=== PATIENT | female | born 1970 | race Hispanic/Latino ===

== ENCOUNTER 2018-09-24 14:13 | Inpatient (IN) | payer SELFPAY ==
[~2018-09-24 14:13] MED LIST: ISOVUE-370 76%-LOCM 1 ML ONE
[2018-09-24 15:11] LABS: #Basophils 0.1 thou/uL (0.0-0.2); #Eosinphils 0.1 thou/uL (0.0-0.7); #Lymphocytes 1.8 thou/uL (1.20-3.40); #Monocytes 0.6 thou/uL (0.11-0.59); #Neutrophils 4.9 thou/uL (1.40-6.50); %Basophils 1.8 % (0.0-1.0); %Eosinophils 1.9 % (0.0-10.0); %Lymphocytes 24.1 % (21.0-51.0); %Monocytes 7.3 % (0.0-10.0); %Neutrophils 64.9 % (42.0-75.0); Hemoglobin 13.1 g/dL (12.0-16.0); Mean Corpuscular HGB CONC 30.5 g/dL (32.0-36.0); Mean Corpuscular Hemoglobin 26.2 pg (27.0-31.0); Mean Corpuscular Volume 85.9 fL (78.0-98.0); Mean Platelet Volume 8.9 fL (7.4-10.4); Platelet Count 227 thou/uL (130-400); RBC Distribution Width 15.1 % (11.5-14.5); Red Blood Cell (RBC) Count 5.01 mill/uL (4.20-5.40); White Blood Cell (WBC) Count 7.5 thou/uL (4.8-10.8)
--- NOTE | 2018-09-24 15:20 | RAD ---
EXAM: Chest one view: HISTORY: Chest pain, fluid retention COMPARISON: 04/18/2011 FINDINGS: Heart size: Enlarged. Lungs: Bilateral vascular congestion with minimal linear and alveolar patchy perihilar opacity change s. No overt confluent pneumonia. IMPRESSION: Cardiomegaly with vascular congestion and possible mild or early edema without confluent pneumonia.
[2018-09-24 15:27] LABS: ALT (SGPT) 13 U/L (8-55); AST (SGOT) 15 U/L (5-34); Albumin 3.3 g/dL (3.5-5.0); Alkaline Phosphatase 88 U/L (40-150); Anion Gap 13 mmol/L (10-20); BUN (Urea Nitrogen) 5 mg/dL (7.0-18.7); Bilirubin, Total 1.4 mg/dL (0.2-1.2); Calc. Creatinine Clearance 0 mL/min (70-130); Calcium 8.5 mg/dL (7.8-10.44); Carbon Dioxide 29 mmol/L (22-29); Chloride 99 mmol/L (98-107); Estimated GFR-MDRD 84; Globulin 4.8 g/dL (2.4-3.5); Glucose 100 mg/dL (70-105); Potassium 3.5 mmol/L (3.5-5.1); Protein, Total 8.1 g/dL (6.0-8.3); Sodium 137 mmol/L (136-145)
[2018-09-24] MEDS ORDERED: Nitroglycerin 0.4 MG TAB 1 EACH ONE (16:04)
[2018-09-24] MEDS ORDERED: Nitroglycerin 0.4mg/Hour PATCH ONE (16:05)
--- NOTE | 2018-09-24 16:41 | CT ---
CTA CHEST WITH CONTRAST: 09/24/18 Multiple axial tomograms obtained through the chest following angio protocol with multiplanar reconst ruction and 3D post processing. INDICATIONS: Lower extremity pain and edema. History of cardiomyopathy. Chest pain and shortness of breath. FINDINGS: There is cardiomegaly and vascular congestion. The pulmonary arteries show adequate enhancement; olivia amelia, evaluation is degraded due to soft tissue attenuation from body habitus. No evidence of pulmonary embolus identified to the segmental level. Mediastinal and hilar adenopathy is seen. Diffuse ground glass opacities are seen throughout both lung macias. This may represent edema or infl ammatory infiltrate. Images through the upper abdomen unremarkable. Thoracic aorta is opacified and there is no evidence of thoracic dissection or aneurysm. IMPRESSION: 1. No evidence of pulmonary embolus. 2. Cardiomegaly with vascular congestion. Patchy areas of ground glass opacity throughout both l ungs could represent areas of edema or infiltrate. No effusion. 3. Mediastinal and hilar adenopathy. POS: OFF
[2018-09-24 17:43] LABS: Bilirubin Negative (Negative); Blood, Urine Negative (Negative); Clarity Clear (Clear); Glucose, Urine (Dipstick) Normal (Negative); Leukocyte Negative Leu/uL (Negative); Nitrite Negative (Negative); Protein, Urine (Dipstick) Negative (Neg-Trace); Urobilinogen Normal mg/dL (Less than 2)
[2018-09-24] MEDS ORDERED: Furosemide 40 MG/4 ML VIAL ONE (20:47)
[2018-09-24] MEDS ORDERED: Acetaminophen 325 MG TAB PO PRN (21:39)
[2018-09-24] MEDS ORDERED: Ondansetron ODT 4 MG TAB PO PRN (21:39)
[2018-09-24] MEDS ORDERED: Ondansetron PF 4 MG/2 ML Vial IVP PRN (21:39)
[2018-09-24] MEDS ORDERED: Acetaminophen 650 MG Suppository PR PRN (21:39)
[2018-09-24 22:00] VITALS: BMI 57.7
[2018-09-24] MEDS ORDERED: cloNIDine 0.1 MG TAB PO PRN (22:34)
[2018-09-24] MEDS ORDERED: Lisinopril 10 MG TAB PO SCH (22:45)
--- NOTE | 2018-09-24 23:56 | HP ---
PRIMARY CARE PHYSICIAN: The patient has no PCP. CODE STATUS: Full code. TIME OF EVALUATION: 8:10 p.m. CHIEF COMPLAINT: Bilateral leg swelling and shortness of breath. HISTORY OF PRESENT ILLNESS: This is a 47-year-old female patient with past medical history of cardiomyopathy, came to the hospital after having severe gradually worsening shortness of breath. No clear triggers, no alleviating factors. The patient does not follow up with any doctor. Does not take any medications. The patient is obese, she presented with severe shortness of breath and bilateral leg swelling, symptoms were severe. REVIEW OF SYSTEMS: CONSTITUTIONAL: No fever or chills. The patient has generalized weakness. RESPIRATORY: The patient has cough, sputum production, and shortness of breath. CARDIOVASCULAR: No chest pain or palpitation. GASTROINTESTINAL: No nausea. No vomiting, diarrhea, or abdominal pain. 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 GENITOURINARY: No burning on urination. EXTREMITIES: Bilateral leg swelling. All other systems were reviewed and negative except for the findings mentioned above. PAST MEDICAL HISTORY: Positive for hypertension, morbid obesity, diabetes, preeclampsia, and varicose veins. PAST SURGICAL HISTORY: Appendectomy and . PSYCHIATRIC HISTORY: No reported previous psych history. SOCIAL HISTORY: The patient uses tobacco, smokes cigarettes daily. The patient has smoked for 30 years. The patient smokes one pack per day. KNOWN ALLERGIES: No known drug allergies. REPORTED MEDICATIONS: 1. Benadryl. 2. Tylenol. PHYSICAL EXAMINATION: VITAL SIGNS: On presentation; heart rate 105, respiratory rate was 20, temperature 98.2, pain 6/10, oxygen saturation was 87% on room air, and blood pressure 216/112. GENERAL APPEARANCE: The patient is alert, oriented, not in acute distress. HEENT: Eyes, normal conjunctivae. Moist oral mucosa. Anicteric. No JVD. RESPIRATORY: Bilateral air entry. No rales. No wheezes. Symmetric expansion. CARDIOVASCULAR: Normal rate. Regular rhythm. No murmurs. No gallop. Bilateral leg edema. The patient has significant high blood pressure. ABDOMEN: Soft. Normal bowel sounds. MUSCULOSKELETAL: Baseline range of motion and strength. SKIN: Warm, intact. No pallor. No rash. No redness except for chronic skin changes due to psoriasis in the back and also bilateral lower extremities. Capillary refill seems to be intact. NEURO: No evidence of any new focal weakness. Cranial nerves seem to be intact. PSYCH: The patient has good mood. No anxiety. Optimal judgment. DIAGNOSTIC STUDIES: CARDIOVASCULAR STUDIES: EKG was reviewed. The patient has normal sinus rhythm with a rate of 78, prolonged QT of 503. IMAGING STUDIES: Chest CTA was done. No evidence of pulmonary embolism. Cardiomegaly with vascular congestion. Patchy area of ground-glass opacity throughout both lungs, could represent areas of edema or infiltrate. No effusion. Mediastinal and hilar adenopathy. LABORATORY RESULTS: Labs were reviewed. The patient has white count 7.5, hemoglobin 13.1, MCV 85.9, and platelet count 227. Chemistry; sodium 137, potassium 3.5, chloride 99, carbon dioxide 29, anion gap 13, BUN 5, creatinine 0.74, GFR 84, glucose 100, and calcium 9.5. Total bilirubin 1.4, AST 15, ALT 13, and alkaline phosphatase 88. Troponin was negative. Beta natriuretic peptide 143.5. Serum total protein 8.1, albumin 3.3, globulin 4.8, albumin to globulin ratio 0.7. UA was done, was negative. ASSESSMENT AND PLAN: The patient will be placed in the hospital with following medical problems; 1. Congestive heart failure exacerbation. The patient does not follow with any medications, noncompliant with treatment. The patient has been started on Lasix, restart blood pressure medications. Once stable, can be started on beta blockers. 2. Hypertensive urgency. The patient presented with systolic blood pressure in the 200s. We have restarted some p.o. medications and the patient has been also started on Lasix and nitroglycerin paste. We will monitor and adjust treatment as needed. 3. History of psoriasis. The patient on no medications. The patient has extensive chronic plaques, but it seem to be stable at this point. 4. Morbid obesity. She is advised to lose weight. 5. Deep venous thrombosis prophylaxis. Job ID: [id number]
[2018-09-25 05:16] LABS: Anion Gap 13 mmol/L (10-20); BUN (Urea Nitrogen) 6 mg/dL (7.0-18.7); Calc. Creatinine Clearance 226 mL/min (70-130); Calcium 8.6 mg/dL (7.8-10.44); Carbon Dioxide 30 mmol/L (22-29); Chloride 98 mmol/L (98-107); Estimated GFR-MDRD 88; Glucose 104 mg/dL (70-105); Potassium 3.5 mmol/L (3.5-5.1); Sodium 137 mmol/L (136-145)
[2018-09-25 05:22] LABS: #Eosinphils 0.2 thou/uL (0.0-0.7); #Lymphocytes 1.5 thou/uL (1.20-3.40); #Monocytes 0.6 thou/uL (0.11-0.59); #Neutrophils 4.6 thou/uL (1.40-6.50); %Basophils 0.5 % (0.0-1.0); %Eosinophils 3.3 % (0.0-10.0); %Lymphocytes 21.9 % (21.0-51.0); %Monocytes 8.5 % (0.0-10.0); %Neutrophils 65.8 % (42.0-75.0); Hemoglobin 13.5 g/dL (12.0-16.0); Mean Corpuscular HGB CONC 30.2 g/dL (32.0-36.0); Mean Corpuscular Hemoglobin 26.2 pg (27.0-31.0); Mean Corpuscular Volume 86.7 fL (78.0-98.0); Mean Platelet Volume 8.7 fL (7.4-10.4); Platelet Count 217 thou/uL (130-400); RBC Distribution Width 15.1 % (11.5-14.5); Red Blood Cell (RBC) Count 5.16 mill/uL (4.20-5.40)
[2018-09-25] MEDS: Nitroglycerin 2% Ointment 1 INCH/1 GM Packet TOP SCH ×3 (05:43→21:35)
[2018-09-25] MEDS: Furosemide 40 MG/4 ML VIAL SLOW IVP SCH ×2 (05:43→13:59)
[2018-09-25] MEDS: Lisinopril 10 MG TAB PO SCH (09:34)
[2018-09-25] MEDS: Hydrochlorothiazide 25 MG TAB PO SCH (09:34)
[2018-09-25] MEDS: Enoxaparin Sodium 40 MG/0.4 ML SYRINGE SC SCH (09:35)
--- NOTE | 2018-09-25 11:14 | PRG ---
DATE OF SERVICE: 09/25/2018 SUBJECTIVE: The patient is seen and examined at the bedside. She has some numbness in her both lower extremities. She has some shortness of breath, which has somewhat improved since yesterday. She denies any fever or chills. OBJECTIVE: VITAL SIGNS: Blood pressure is 183/85, pulse is 73, temperature is 97.7, respiratory rate is 16, O2 saturation is 99% on 1.5 L by nasal cannula. She is obese. Her BMI is 57. HEENT: Her head is atraumatic and normocephalic. Sclerae are nonicteric. Oral mucosa is moist. NECK: Supple, obese. LUNGS: Breath sounds diminished at both bases. HEART: S1 and S2, distant. No S3. No S4. ABDOMEN: Obese, soft, nontender, nondistended. EXTREMITIES: 2 to 3+ peripheral edema, chronic with venous stasis skin changes, which is chronic. Pulses are not palpable secondary to the above-mentioned findings. NEUROLOGICAL: She follows my commands. She moves her all 4 extremities. There is some decreased sensation over her feet bilaterally similar. LABORATORY DATA: Labs showed a white count of 7.0, hemoglobin 13.5, hematocrit 44.7, platelet count 217. Sodium 137, potassium 3.5, chloride 98, CO2 of 30, BUN is 6, creatinine 0.71, glucose 104, calcium 8.6. Urinalysis is within normal limits. Her BNP was 143.5 yesterday. IMPRESSION: 1. cardiomyopathy. Apparently after she had baby in 2011, she was diagnosed with cardiomyopathy. She was taking some medications, but she ran out of them and she did not have more insurance and she has not been on any medications for several years. She is started on Lasix. She is started on KAYCE inhibitor at this point and most likely, we will start her on carvedilol small dose. 2. Hypertensive urgency. Again, the blood pressure was in the 200s at the time of emergency room evaluation, now it is 180s and she was just giving her morning dose medications. We are awaiting for echocardiogram to be done to evaluate #1 and #2 problems. 3. History of psoriasis. 4. Venous stasis of both lower extremities. 5. Morbid obesity with BMI at 57. 6. Metabolic alkalosis most likely secondary to IV Lasix. PLAN: Plan is to continue current regimen, which includes IV Lasix and lisinopril. I am going to start her on small dose of carvedilol too since I do not think those two is going to be enough to get her blood pressure to a reasonable range. We are awaiting for echocardiogram to come back. I will start her on baby aspirin 81 mg once a day, and construction area manager is consulted since the patient does not have much funds and she will need referral most likely to [facility] to see the doctor and get some help with the medicine. DVT prophylaxis with Lovenox is going to be continued. Job ID: [id number]
[2018-09-25] MEDS: Carvedilol 3.125 MG TAB PO SCH (16:23)
[2018-09-26] MEDS: Furosemide 40 MG/4 ML VIAL SLOW IVP SCH ×2 (06:06→14:06)
[2018-09-26] MEDS: Nitroglycerin 2% Ointment 1 INCH/1 GM Packet TOP SCH ×3 (06:06→20:13)
[2018-09-26] MEDS: Hydrochlorothiazide 25 MG TAB PO SCH (08:42)
[2018-09-26] MEDS: Lisinopril 10 MG TAB PO SCH (08:43)
[2018-09-26] MEDS: Carvedilol 3.125 MG TAB PO SCH ×2 (08:43→17:19)
[2018-09-26] MEDS: Aspirin 81 mg Enteric Coated Tablet PO SCH (08:43)
[2018-09-26] MEDS: Enoxaparin Sodium 40 MG/0.4 ML SYRINGE SC SCH (08:43)
[2018-09-26 12:11] LABS: BUN (Urea Nitrogen) 10 mg/dL (7.0-18.7); Calc. Creatinine Clearance 208 mL/min (70-130); Calcium 8.6 mg/dL (7.8-10.44); Estimated GFR-MDRD 82; Glucose 95 mg/dL (70-105)
[2018-09-26 12:20] LABS: Anion Gap 16 mmol/L (10-20); Carbon Dioxide 33 mmol/L (22-29); Chloride 93 mmol/L (98-107); Sodium 138 mmol/L (136-145)
--- NOTE | 2018-09-26 14:17 | PRG ---
DATE OF SERVICE: 09/26/2018 SUBJECTIVE: The patient is seen and examined at the bedside. She is doing somewhat better. She does not have much complaints to offer. She started urinating a lot. OBJECTIVE: VITAL SIGNS: Blood pressure is 151/88, pulse is 75, O2 saturation is 96% on half a liter of nasal cannula, temperature is 97.7. Obese, her BMI is 56. HEENT: Her head is atraumatic. Eyes, conjunctivae pinkish. Oral mucosa is moist. NECK: Supple. Obese. LUNGS: Breath sounds diminished at both bases with bilateral crackles at both bases. HEART: S1, S2, somewhat distant. No S3. No S4. ABDOMEN: Obese, soft, nontender. EXTREMITIES: Significant for lymphedema and venous stasis. NEUROLOGIC: She follows my commands. She moves all 4 extremities. There is no any sensory or motor deficit present. Cranial nerves are intact. LABORATORY DATA: Labs showed a sodium of 138, potassium 4.0, chloride 93, CO2 of 33, BUN 10, creatinine 0.75. Echocardiogram was done, but it was poor quality and the general warehouse worker was not able to read it. IMPRESSION: 1. Cardiomyopathy, which started several years ago and the patient stopped taking her medications. I started her on Lasix and KAYCE inhibitor and Coreg. She requires high dose of Coreg today since her blood pressure is still running high. 2. Hypertensive urgency. As I said above, she is getting lisinopril and Coreg, but her blood pressure is still not controlled, so we will double the dose on her Coreg and continue lisinopril and continue diuresis. 3. History of psoriasis. 4. Venous stasis of both lower extremities and lymphedema. 5. Morbid obesity with BMI critical at 57. 6. Metabolic alkalosis, most likely secondary to IV Lasix use. PLAN: Plan is to continue her current regimen with change of her carvedilol dose since her blood pressure is still running elevated, although it is improved. We will continue her aspirin. We will continue her other regimen and we will repeat echocardiogram today to learn what is her LVEF. Job ID: [id number]
[2018-09-27 05:25] LABS: Anion Gap 12 mmol/L (10-20); BUN (Urea Nitrogen) 14 mg/dL (7.0-18.7); Calc. Creatinine Clearance 211 mL/min (70-130); Calcium 8.5 mg/dL (7.8-10.44); Carbon Dioxide 35 mmol/L (22-29); Chloride 94 mmol/L (98-107); Estimated GFR-MDRD 85; Glucose 95 mg/dL (70-105); Potassium 3.5 mmol/L (3.5-5.1); Sodium 137 mmol/L (136-145)
[2018-09-27] MEDS: Furosemide 40 MG/4 ML VIAL SLOW IVP SCH ×2 (05:58→12:59)
[2018-09-27] MEDS: Nitroglycerin 2% Ointment 1 INCH/1 GM Packet TOP SCH ×3 (06:40→20:37)
[2018-09-27] MEDS: Lisinopril 10 MG TAB PO SCH ×2 (07:46→20:35)
[2018-09-27] MEDS: Carvedilol 3.125 MG TAB PO SCH ×2 (07:46→16:36)
[2018-09-27] MEDS: Hydrochlorothiazide 25 MG TAB PO SCH (07:46)
[2018-09-27] MEDS: Enoxaparin Sodium 40 MG/0.4 ML SYRINGE SC SCH (07:47)
[2018-09-27] MEDS: Aspirin 81 mg Enteric Coated Tablet PO SCH (07:47)
--- NOTE | 2018-09-27 12:03 | PRG ---
DATE OF SERVICE: 09/27/2018 SUBJECTIVE: The patient is seen and examined at bedside. She is doing significantly better. She diuresed very well. Her swelling on her lower extremities improved according to her. OBJECTIVE: VITAL SIGNS: Blood pressure is 166/90, pulse is 68, respirations 16, temperature 97.7, O2 saturation is 97% on room air. HEENT: Head is atraumatic and normocephalic. Sclerae are nonicteric. Oral mucosa is moist. NECK: Supple, obese. LUNGS: Breath sounds diminished at both bases. No crackles. HEART: S1 and S2 distant. No S3 and no S4. ABDOMEN: Obese, nontender. EXTREMITIES: She has quite intense lymphedema, which is somewhat improved from the time of admission. She has psoriatic skin changes in her back and her lower extremities. NEUROLOGIC: She is alert and oriented x4. There is no any motor deficits. LABORATORY DATA: Labs showed sodium of 137, potassium 3.5, chloride 94, CO2 of 35, BUN 14, creatinine 0.73, calcium 8.5. IMPRESSION: 1. Acute on chronic congestive heart failure. Echocardiogram was very difficult to read, so we are getting a new one. We will get clinical application specialist involved. She is started on Lasix, ledvvxbnups-iutdwdztvt-ylwpaq inhibitor, and Coreg. 2. Hypertensive urgency. Blood pressure is improved, but it is still a problem. We will work on that. 3. History of psoriasis. 4. Venous stasis and lymphedema of the lower extremities. 5. Morbid obesity. Body mass index critical at 57. PLAN: Continue current regimen. Obtain new echo and Cardiology consultation is requested, and her urine output was more than 5000 mL, so we will correct the hydrochlorothiazide and we will continue aspirin. Job ID: [id number]
--- NOTE | 2018-09-27 23:52 | CON ---
DATE OF CONSULTATION: HISTORY OF PRESENT ILLNESS: Abby Birch is a 47-year-old female, who was seen by Dr. Gonzalez in 2011. In March 2011, she gave and developed a peripartum cardiomyopathy. Ejection fraction at that time was 30-35%. She was placed on carvedilol and furosemide. She apparently then became again 7 months or 8 months later. She stated that she was evaluated at [facility] in [place]. From her description, it sounds as if she underwent cardiac catheterization to assess her left ventricular function. She describes having a catheter placed through her legs up to her heart and dye was injected into her heart. It was determined that she probably could undergo the . She states she eventually delivered by . She took heart failure medication for another 6 months after that , but once her Medicaid ran out, she stopped medication and has not taken anything since that time, which was 6 years ago. She states that she always has leg edema and at times it will weep fluid. She has had increased shortness of breath over the last 2-3 weeks. She denies any episodes of PND. She denies any chest discomfort. She ultimately came to the emergency room for further evaluation. PAST MEDICAL HISTORY: Hypertension, on no treatment, morbid obesity, venous insufficiency, and peripartum cardiomyopathy. PAST SURGICAL HISTORY: Appendectomy and . MEDICATIONS: None. ALLERGIES: NONE. SOCIAL HISTORY: She smokes one half pack per day. FAMILY HISTORY: Negative for coronary artery disease. REVIEW OF SYSTEMS: A 12-point review of systems unremarkable except as noted above. PHYSICAL EXAMINATION: VITAL SIGNS: Blood pressure 140/85 and pulse of 74. HEENT: SUMMER. NECK: Supple. CHEST: Reveals distant breath sounds. CARDIOVASCULAR: S1, S2 normal without any S3, S4, or murmurs. ABDOMEN: Obese. Normal bowel sounds. No tenderness. EXTREMITIES: Revealed severe stasis dermatitis with 1 to 2+ edema to the knee. NEUROLOGIC: Grossly intact. SKIN: Warm and dry. LABORATORY DATA: EKG reveals normal sinus rhythm, possible left atrial enlargement, left ventricular hypertrophy. Chest x-ray revealed cardiomegaly with vascular congestion. Chest CTA revealed no evidence of pulmonary embolism. There is cardiomegaly with vascular congestion and mediastinal and hilar adenopathy. Hemoglobin 13.5, hematocrit 44.7, white count 7000, platelets 217,000. Sodium 137, potassium 3.5, chloride 94, carbon dioxide 35, BUN 14, creatinine 0.73. BNP is only 143.5. Troponin I is less than 0.010. Echocardiogram was a technically inadequate exam and ejection fraction could not be accurately assessed. IMPRESSION: 1. Probable systolic heart failure, although her BNP is not significantly elevated. 2. History of peripartum cardiomyopathy with ejection fraction of 30% to 35% in March 2011, which then improved to 45-50% in November 2011. 3. Noncompliance with medications for the last 6 years. 4. Severe stasis dermatitis. 5. Morbid obesity. 6. Smoker. PLAN: The patient will be continued on carvedilol and will continue to be diuresed. I will increase her lisinopril to 10 mg b.i.d. Job ID: [id number] MTDD
[2018-09-28 04:57] LABS: Anion Gap 14 mmol/L (10-20); BUN (Urea Nitrogen) 17 mg/dL (7.0-18.7); Calc. Creatinine Clearance 201 mL/min (70-130); Calcium 8.9 mg/dL (7.8-10.44); Carbon Dioxide 33 mmol/L (22-29); Chloride 93 mmol/L (98-107); Estimated GFR-MDRD 80; Glucose 96 mg/dL (70-105); Potassium 3.5 mmol/L (3.5-5.1); Sodium 136 mmol/L (136-145)
[2018-09-28] MEDS: Furosemide 40 MG/4 ML VIAL SLOW IVP SCH (06:18)
[2018-09-28] MEDS: Nitroglycerin 2% Ointment 1 INCH/1 GM Packet TOP SCH ×3 (06:18→20:35)
[2018-09-28] MEDS: Carvedilol 3.125 MG TAB PO SCH ×2 (08:48→17:53)
[2018-09-28] MEDS: Lisinopril 10 MG TAB PO SCH ×2 (08:49→20:35)
[2018-09-28] MEDS: Enoxaparin Sodium 40 MG/0.4 ML SYRINGE SC SCH (08:49)
[2018-09-28] MEDS: Aspirin 81 mg Enteric Coated Tablet PO SCH (08:49)
[2018-09-28] MEDS ORDERED: Furosemide 20 MG TAB PO SCH (09:00)
[2018-09-28] MEDS: Furosemide 40 MG TAB PO SCH ×2 (09:42→15:45)
--- NOTE | 2018-09-28 15:21 | PRG ---
DATE OF SERVICE: 09/28/2018 SUBJECTIVE: The patient is seen and examined at the bedside. She is doing gradually better. She is still urinating a lot. She was seen by natural resources technician yesterday. OBJECTIVE: VITAL SIGNS: Blood pressure is 132/79, pulse is 70, temperature is 98.4, respirations 17, and O2 saturation is 92% to 97% on room air. HEENT: Her head is atraumatic and normocephalic. Her eyes are PERRLA. Sclerae are nonicteric. Oral mucosa is moist. NECK: Supple, obese. Breath sounds are diminished at both bases with few crackles bilaterally. HEART: S1 and S2 normal. No S3. No S4. ABDOMEN: Soft, obese, nontender, and nondistended. EXTREMITIES: Lymphedema with psoriatic skin changes present, but the swelling is significantly improved. NEUROLOGICAL: She is alert and oriented x4. There is no any motor or sensory deficits. LABORATORY DATA: Labs showed sodium of 136, potassium 3.5, chloride 93, CO2 of 33, BUN 17, creatinine 0.77, and normal calcium. Echocardiogram was repeated. It was still very difficult examination, but it was estimated that her estimated LVEF is 30% to 35% and there was moderate pulmonic regurgitation present. IMPRESSION: 1. Acute on chronic congestive heart failure, which started few years back. She has improved with diuretics and KAYCE inhibitor and Coreg. Lisinopril was increased by Dr. Blackwell. 2. Hypertensive urgency, improved. 3. Psoriasis. 4. Venous stasis and lymphedema of the lower extremities. 5. Morbid obesity with body mass index of 59, which is critical. PLAN: The patient was counseled about her obesity extensively. We are going to continue her current regimen. She has more than 3000 mL out for the last 24 hours on her urine output. We will see what Dr. Blackwell recommends, but at this point, we will continue the same regimen. Job ID: [id number]
[2018-09-29 05:07] LABS: Anion Gap 12 mmol/L (10-20); BUN (Urea Nitrogen) 24 mg/dL (7.0-18.7); Calc. Creatinine Clearance 156 mL/min (70-130); Calcium 8.8 mg/dL (7.8-10.44); Carbon Dioxide 34 mmol/L (22-29); Chloride 94 mmol/L (98-107); Estimated GFR-MDRD 60; Glucose 87 mg/dL (70-105); Potassium 3.9 mmol/L (3.5-5.1); Sodium 136 mmol/L (136-145)
[2018-09-29] MEDS: Carvedilol 3.125 MG TAB PO SCH (09:07)
[2018-09-29] MEDS: Aspirin 81 mg Enteric Coated Tablet PO SCH (09:07)
[2018-09-29] MEDS: Nitroglycerin 2% Ointment 1 INCH/1 GM Packet TOP SCH ×2 (09:08→15:07)
[2018-09-29] MEDS: Lisinopril 10 MG TAB PO SCH (09:08)
[2018-09-29] MEDS: Enoxaparin Sodium 40 MG/0.4 ML SYRINGE SC SCH (09:09)
[2018-09-29] MEDS: Furosemide 40 MG TAB PO SCH ×2 (09:09→15:06)
[2018-09-29 13:32] VITALS: BP 116/56; TEMP 98.5
--- NOTE | 2018-09-29 23:13 | DIS ---
DATE OF ADMISSION: 09/27/2018 DATE OF DISCHARGE: 09/29/2018 FINAL DIAGNOSES: 1. Acute on chronic congestive heart failure. 2. cardiomyopathy. 3. Hypertensive urgency, corrected. 4. Psoriasis. 5. Venous stasis and lymphedema to both lower extremities. 6. Morbid obesity with body mass index of 59, which is critical. CONSULTANTS: Dr. Shamar Blackwell, Cardiology Service. HOSPITAL COURSE: The patient was a 47-year-old female with past medical history of cardiomyopathy several years ago who was following with the doctor for some time after that diagnosis, but at some point, she stopped following and stopped taking her medications altogether until recently when she started having some shortness of breath and bilateral leg swelling. She presented to the emergency room and was found to have white count of 7.5, hemoglobin 13.1, MCV 85.9. Electrolytes were within normal limits. BUN was 5, creatinine 0.74, glucose 100. Troponin I was negative. Beta natriuretic peptide 143.5. Urinalysis was negative. The patient's CT angiogram of the chest was negative for pulmonary embolism. She had cardiomegaly with vascular congestion and patchy area of ground-glass opacity throughout both lungs, which represented most likely edema. There was no effusion. She was admitted to the hospital. She had echo done, which was not diagnostic. We had to repeat the echo and it was still difficult to read, but her LVEF was estimated at 30% to 35%. Her blood pressure gradually improved with KAYCE inhibitor and Coreg. The patient was seen by Dr. Blackwell who recommended to increase the dose of lisinopril and continue diuresis. She lost approximately 12 pounds from the time of admission to the time of discharge. She is doing well at this point. She has some complaints about some soreness in both sides, but this is most likely secondary to her body habitus and lying in bed for few days and getting up. PHYSICAL EXAMINATION: She is seen and examined before she is discharged today. LUNGS: Her breath sounds are diminished at both bases, but there are no crackles. HEART: S1 and S2 normal. No S3. No S4. ABDOMEN: Obese, soft, nontender. EXTREMITIES: She has lymphedema and some swelling of her lower extremities, but this is improved. Study Lead requested LifeVest since her LVEF is low, but she does not have any funds and she will try to come up with some funds and maybe she would get the LifeVest later. She is discharged home today in good condition. DIET: She will stay on low-salt diet. Try to limit her oral intake of fluids. DISCHARGE MEDICATIONS: 1. Aspirin 81 mg once a day. 2. Carvedilol 6.25 mg twice a day. 3. Furosemide 40 mg daily. 4. Lisinopril 10 mg twice a day. 5. Spironolactone 25 mg daily. 6. Benadryl 25 mg b.i.d. p.r.n. as needed. 7. Tylenol 650 q.6 hours p.r.n. as needed. FOLLOWUP: She will follow up with congestive heart failure clinic in the next couple of days. ACTIVITY: As tolerated. TIME SPENT: Time spent on this discharge is less than 30 minutes. Job ID: [id number]
== END 2018-09-29 15:09 | disposition home or self-care (01) | DRG 292 ==
LOC: ERS 14:13 → 2SW 18:40 → OBSVTOIN 09-27 10:27 → 2NO 09-27 18:33
PROVIDERS: ADMIT Internal Medicine; ATTEND Internal Medicine
DX: I11.0 Hypertensive heart disease with heart failure (principal); E87.3 Alkalosis; Z68.43 Body mass index [BMI] 50.0-59.9, adult; I42.9 Cardiomyopathy, unspecified; I50.23 Acute on chronic systolic (congestive) heart failure; E66.01 Morbid (severe) obesity due to excess calories; E11.9 Type 2 diabetes mellitus without complications; F17.210 Nicotine dependence, cigarettes, uncomplicated; I16.0 Hypertensive urgency; I87.8 Other specified disorders of veins; I89.0 Lymphedema, not elsewhere classified; L40.9 Psoriasis, unspecified; T50.1X5A Adverse effect of loop [high-ceiling] diuretics, initial encounter; Z90.49 Acquired absence of other specified parts of digestive tract; Z91.19 Patient's noncompliance with other medical treatment and regimen
CPT/HCPCS: 36415; 71045; 71275; 80048; 80053; 81003; 83880; 84484; 85025; 90471; 90732; 93005; 93306; 93798; G0009; J1650; J1940; J2405; Q9966